=== PATIENT | female | born 1995 | race Caucasian/White ===

== ENCOUNTER 2016-08-28 17:53 | Emergency (ER) | payer BC, OTHER ==
[2016-08-28] MEDS ORDERED: IBUPROFEN 600 MG TAB PO STA (20:01)
--- NOTE | 2016-08-28 20:35 | ED ---
Eye Problem HPI - General Source: patient, RN notes reviewed, old records reviewed Mode of arrival: ambulatory Limitations: no limitations <Vickie Huynh - Last Filed: 08/28/16 22:17> <Junior Kauffman - Last Filed: 08/28/16 22:24> - General Chief complaint: Eye Problems Stated complaint: BLIND IN ONE EYE Time Seen by Provider: 08/28/16 19:32 - History of Present Illness Initial comments: This is a 21-year-old female presenting to the emergency department with 6 days of right eye blurriness and blindness. Patient reports that last week and she went to a I doctor and was initially diagnosed as neuritis and had seen the heel cover splitter last Sunday. Patient reports that the heel cover splitter sent her today to [place] to be evaluated concerned of bleeding behind her eye.. She reports that she was seen by 4 physician and had multiple tests and they stated they could not identify what is the cause of her blindness. Patient reports that she sees a zamora haze over the right eye. Right eye is 20/50 and left eye is 20/25. She does chronically wear glasses. She does come to the emergency department today with a mild fever. She denies any other associated symptoms or other cause of the fever however she is a smoker and does have a mild cough chronically. She reports that she had no MRIs or any other studies besides eye test. She reports that her pressures were measured to be normal. She reports that he became increasingly blurry over the past day. (Vickie Huynh) - Related Data Home Medications Medication Instructions Recorded Confirmed No Known Home Medications [No 08/28/16 08/28/16 Known Home Medications] Allergies Allergy/AdvReac Type Severity Reaction Status Date / Time acetaminophen [From Tylenol] Allergy Unknown Verified 08/28/16 20:01 cephalexin monohydrate Allergy Rash/Hives Verified 08/28/16 20:01 [From Keflex] ciprofloxacin [From Cipro] Allergy Unknown Verified 08/28/16 20:01 ciprofloxacin HCl Allergy Nausea & Verified 08/28/16 20:01 [From Cipro] Vomiting pseudoephedrine HCl Allergy Confusion Verified 08/28/16 20:01 [From Sudafed] shellfish derived [Shellfish] Allergy Anaphylaxis Verified 08/28/16 20:01 sulfamethoxazole Allergy Unknown Verified 08/28/16 20:01 [From Bactrim] trimethoprim [From Bactrim] Allergy Unknown Verified 08/28/16 20:01 valacyclovir HCl Allergy Unknown Verified 08/28/16 20:01 [From Valtrex] Review of Systems ROS Other: All systems not noted in ROS Statement are negative. <Vickie Huynh - Last Filed: 08/28/16 22:17> ROS Other: All systems not noted in ROS Statement are negative. <Junior Kauffman - Last Filed: 08/28/16 22:24> ROS Statement: Those systems with pertinent positive or pertinent negative responses have been documented in the HPI. Past Medical History Past Medical History: No Reported History History of Any Multi-Drug Resistant Organisms: None Reported Past Surgical History: No Surgical Hx Reported Past Psychological History: Anxiety, Depression Smoking Status: Current every day smoker Past Alcohol Use History: None Reported Past Drug Use History: None Reported <Vickie Huynh - Last Filed: 08/28/16 22:17> General Exam Limitations: no limitations General appearance: alert, in no apparent distress Head exam: Present: atraumatic, normocephalic, normal inspection Eye exam: Present: normal appearance, PERRL, EOMI. Absent: scleral icterus, conjunctival injection, periorbital swelling, periorbital tenderness Pupils: Present: normal accommodation Expanded Eyelids: Normal Inspection: Bilateral Pupils: Regular, Round: Bilateral Sclera/Conjunctival: Normal Inspection: Bilateral Visual acuity (R) = 20/: 50 Visual acuity (L) = 20/: 25 With correction: No ENT exam: Present: normal exam, mucous membranes moist, TM's normal bilaterally Neck exam: Present: normal inspection. Absent: tenderness, meningismus, lymphadenopathy Respiratory exam: Present: normal lung sounds bilaterally. Absent: respiratory distress, wheezes, rales, rhonchi, stridor Cardiovascular Exam: Present: regular rate, normal rhythm, normal heart sounds. Absent: systolic murmur, diastolic murmur, rubs, gallop, clicks GI/Abdominal exam: Present: soft, normal bowel sounds. Absent: distended, tenderness, guarding, rebound, rigid Extremities exam: Present: normal inspection, full ROM, normal capillary refill. Absent: tenderness, pedal edema, joint swelling, calf tenderness Back exam: Present: normal inspection Neurological exam: Present: alert, oriented X3, CN II-XII intact Psychiatric exam: Present: normal affect, normal mood Skin exam: Present: warm, dry, intact, normal color. Absent: rash <LinoVickie rebollar - Last Filed: 08/28/16 22:17> <Junior Kauffman - Last Filed: 08/28/16 22:24> - General Exam Comments Initial Comments: Is a 21-year-old female. Patient does not appear to be in any acute distress. ( Vickie Huynh) Medical Decision Making - Lab Data Result diagrams: 08/28/16 20:26 08/28/16 20:26 <LinoVickie rebollar - Last Filed: 08/28/16 22:17> - Lab Data Result diagrams: 08/28/16 20:26 08/28/16 20:26 <Junior Kauffman - Last Filed: 08/28/16 22:24> - Medical Decision Making This is a 21-year-old female presenting to the emergency department with 6 days of right eye blurriness and blindness. Patient reports that last week and she went to a I doctor and was initially diagnosed as neuritis and had seen the heel cover splitter last Sunday. Patient reports that the heel cover splitter sent her today to [place] to be evaluated concerned of bleeding behind her eye.. She reports that she was seen by 4 physician and had multiple tests and they stated they could not identify what is the cause of her blindness. Patient reports that she sees a zamora haze over the right eye. Right eye is 20/50 and left eye is 20/25. Case discussed with Dr. Godinez and he did discuss this with Dr. Santos. He reports that the physicians at [place] that saw her diagnosed with acute macular retinopathy. The patient needs to follow-up with Dr. Santos. Patient was informed of these results. Patient agrees and follow-up. Return parameters were discussed. (Vickie Huynh) I saw this patient in conjunction with the physician assistant elementary teacher. I performed independent history and physical exam. Agree with case management. This patient is a 21-year-old woman who presents with right eye scotoma. On my exam, the patient states eye exam is largely normal. Lids are normal, conjunctiva normal. The cornea is thin and clear. Anterior chamber clear. Iris normal. The retina exam slightly limited without dilation but normal. I discussed the case with Dr. Santos who had seen the patient earlier, and he states he had also had some communication with the specialist that [facility] who had seen the patient. 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 At this point there is not an acute treatment and the patient is to follow-up. This was discussed with the patient. (Junior Kauffman) - Lab Data Lab Results 08/28/16 08/28/16 Range/Units 20:26 20:26 WBC 7.4 (3.8-10.6) k/uL RBC 4.71 (3.80-5.40) m/uL Hgb 14.9 (11.4-16.0) gm/dL Hct 42.1 (34.0-46.0) % MCV 89.3 (80.0-100.0) fL MCH 31.6 (25.0-35.0) pg MCHC 35.4 (31.0-37.0) g/dL RDW 12.0 (11.5-15.5) % Plt Count 232 (150-450) k/uL Neutrophils % 61 % Lymphocytes % 30 % Monocytes % 4 % Eosinophils % 2 % Basophils % 1 % Neutrophils # 4.5 (1.3-7.7) k/uL Lymphocytes # 2.2 (1.0-4.8) k/uL Monocytes # 0.3 (0-1.0) k/uL Eosinophils # 0.1 (0-0.7) k/uL Basophils # 0.1 (0-0.2) k/uL Sodium 143 (137-145) mmol/L Potassium 4.0 (3.5-5.1) mmol/L Chloride 107 (98-107) mmol/L Carbon Dioxide 27 (22-30) mmol/L Anion Gap 9 mmol/L BUN 7 (7-17) mg/dL Creatinine 0.62 (0.52-1.04) mg/dL Est GFR (MDRD) Af Amer >60 (>60 ml/min/1.73 sqM) Est GFR (MDRD) Non-Af >60 (>60 ml/min/1.73 sqM) Glucose 81 (74-99) mg/dL Calcium 9.2 (8.4-10.2) mg/dL Disposition Time of Disposition: 22:18 <Vickie Huynh - Last Filed: 08/28/16 22:17> <Junior Kauffman - Last Filed: 08/28/16 22:24> 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 Santos. Return to emergency department if any alarming signs or symptoms occur. Referrals: Delmy Norwood MD [Primary Care Provider] - 1-2 days
[2016-08-28 20:36] LABS: Basophils # (A) 0.1 k/uL (0-0.2); Basophils % (A) 1 %; CH 32.2; CHCM 36.1; Eosinophils # (A) 0.1 k/uL (0-0.7); Eosinophils % (A) 2 %; HCT 42.1 % (34.0-46.0); HDW 2.52; HGB 14.9 gm/dL (11.4-16.0); Luc # (Auto) 0.15; Luc % (Auto) 2; Lymphocytes # (A) 2.2 k/uL (1.0-4.8); Lymphocytes % (A) 30 %; MCH 31.6 pg (25.0-35.0); MCHC 35.4 g/dL (31.0-37.0); MCV 89.3 fL (80.0-100.0); Mean Platelet Volume 6.8; Monocytes # (A) 0.3 k/uL (0-1.0); Monocytes % (A) 4 %; Neutrophils # (A) 4.5 k/uL (1.3-7.7); Neutrophils % (A) 61 %; RBC 4.71 m/uL (3.80-5.40); WBC 7.4 k/uL (3.8-10.6); WBC (Perox) 6.95
[2016-08-28 20:51] LABS: Anion Gap 9 mmol/L; Blood Urea Nitrogen 7 mg/dL (7-17); Calcium 9.2 mg/dL (8.4-10.2); Carbon Dioxide 27 mmol/L (22-30); Chloride 107 mmol/L (98-107); Glucose 81 mg/dL (74-99); Non-African American GFR(MDRD) >60 (>60 ml/min/1.73 sqM); Sodium 143 mmol/L (137-145)
[2016-08-28 21:33] VITALS: BP 100/55; PULSE 75; RESP 18; TEMP 98.7
== END 2016-08-28 22:25 | disposition home or self-care (01) ==
LOC: EC 17:53
DX: H30.891 Other chorioretinal inflammations, right eye (principal); F17.200 Nicotine dependence, unspecified, uncomplicated; Z88.1 Allergy status to other antibiotic agents; Z88.2 Allergy status to sulfonamides; Z91.013 Allergy to seafood; Z88.8 Allergy status to other drugs, medicaments and biological substances
CPT/HCPCS: 36415; 80048; 85025; 99284